=== PATIENT | male | born 2000 | race Caucasian/White ===

== ENCOUNTER 2025-01-14 23:24 | Emergency (ER) | payer SELFPAY ==
[2025-01-14 23:34] VITALS: PULSE 93; RESP 16; O2SAT 98
[2025-01-15] MEDS ORDERED: DOXY100T28 MT (03:21)
[2025-01-15] MEDS ORDERED: IBUP-1455 MT (03:21)
== END 2025-01-14 23:50 | disposition left against medical advice (07) ==
LOC: ER 23:24
DX: R10.2 Pelvic and perineal pain (principal); Z53.21 Procedure and treatment not carried out due to patient leaving prior to being seen by health care provider

== ENCOUNTER 2025-01-15 01:34 | Emergency (ER) | payer SELFPAY ==
[~2025-01-15] VITALS: Ht 172.7 cm; Wt 69.0 kg
[2025-01-15 01:48] VITALS: O2SAT 100
[2025-01-15 02:38] LABS: CLARITY URINE CLEAR (CLEAR); COLOR URINE YELLOW (YELLOW); GLUCOSE URINE NEGATIVE (NEGATIVE); KETONES URINE NEGATIVE (NEGATIVE); LEUKOCYTE ESTERASE URINE NEGATIVE (NEGATIVE); NITRITE URINE NEGATIVE (NEGATIVE); OCCULT BLOOD URINE NEGATIVE (NEGATIVE); PH URINE 6.0 (4.5-8.0); PROTEIN URINE NEGATIVE (NEGATIVE); SPECIFIC GRAVITY URINE 1.013 (1.005-1.030); UROBILINOGEN URINE 0.2 E.U./dL (0.2-1.0)
[2025-01-15] MEDS: KETOROLAC 30MG/ML VIAL IM ONE (02:50)
[2025-01-15] MEDS ORDERED: IBUP-1455 MT (03:21)
[2025-01-15] MEDS ORDERED: DOXY100T28 MT (03:21)
[2025-01-15] MEDS: CEFTRIAXONE SODIUM 500MG VIAL IM ONE (03:59)
[2025-01-15 04:05] VITALS: BP 134/73; PULSE 60; RESP 18; TEMP 36.9; O2SAT 100
[2025-01-15] MEDS: DOXYCYCLINE HYCLATE 100MG CAPSULE PO ONE (04:05)
[2025-01-15] MEDS: LIDOCAINE HCL 1% 20ML VIAL INFIL ONE (04:05)
== END 2025-01-15 04:06 | disposition home or self-care (01) ==
LOC: ER 01:34
DX: N50.811 Right testicular pain (principal)
CPT/HCPCS: 99285; 93976; 81003; 76870; 96372; J0696; J2003